=== PATIENT | female | born 1945 | race Caucasian/White ===

== ENCOUNTER → 2020-11-26 07:52 | Outpatient (CLI) | payer MEDICARE, SELFPAY ==
--- NOTE | ~2020-11-26 | US_ITS ---
US abdomen complete EXAMINATION: US Abdomen Complete INDICATION: Right upper quadrant abdominal pain PROCEDURE: Realtime High Resolution abdomen ultrasound. COMPARISON: No prior studies for comparison FINDINGS: Gallbladder contains multiple stones. No significant gallbladder wall thickening or pericho lecystic fluid. Common bile duct measures 4 mm. Liver echotexture is increased, consistent with fatty infiltration.. Pancreas within normal limits. Pancreatic tail is obscured by bowel gas. Spleen is unremarkeable. There is a 2.7 [address] renal [address]. Otherwise renal echotexture is unremarkable. Right kidney measures 11.3 cm. Left kidney measures 10.7 cm. Visualized aspects of the aorta and IVC are within normal limits. Portal vein is patent. No sonograph ic Coreas's sign indicated by the technologist. No discrete mass identified in the area of palpable c oncern in the upper quadrants. IMPRESSION: 1: Cholelithiasis. 2: Hepatic steatosis. 3: Right renal cyst measuring 8.7 cm. Reviewed, dictated and finalized at location A.
== END ==
PROVIDERS: PCP Family Medicine; Visit Provider Family Medicine
DX: R10.11 Right upper quadrant pain (principal); K80.20 Calculus of gallbladder without cholecystitis without obstruction; K76.0 Fatty (change of) liver, not elsewhere classified; N28.1 Cyst of kidney, acquired
CPT/HCPCS: 76700

== ENCOUNTER 2024-12-21 09:06 | Outpatient (CLI) | payer MEDICARE, SELFPAY ==
--- OUTSIDE RECORDS SUMMARY | 2024-12-21 09:21 | XMS_ITS | Referral Summary ---
Author Organization [facility] at the Medical Office Building Address [address] [place] [phone] Care Team Providers Care Proc Tech Name Role Phone Suleman Pinto DO Primary Care Provider + Encounters Date Type Department Care Team Description 12/01/2024 Letter (Out) [facility] [address] [place] [phone] 11/30/2024 Telephone [facility] [address] [place] [address] [phone] Suleman Pinto, Medical Question/Miscellaneous 11/24/2024 Orders Only [facility] [address] [place] [phone] Suleman Pinto DO 11/24/2024 Telephone [facility] [address] [place] [phone] Suleman Pinto DO Recommendation Request 11/17/2024 Telephone [facility] [address] [place] [phone] Suleman Pinto DO Medical Question/Miscellaneous 11/05/2024 2:45 PM CDT Office Visit [facility] at [place] [address] [facility] [address] [place] [phone] Suleman Pinto DO Functional diarrhea (Primary Dx); Stage 3a chronic kidney disease (HCC); Hypertensive kidney disease with CKD (chronic kidney disease), stage 1-4 or unspecified chronic kidney disease; Essential hypertension; Class 1 obesity without serious comorbidity with body mass index (BMI) of 30.0 to 30.9 in adult, unspecified obesity type 10/21/2024 Orders Only [facility] [address] [place] [phone] Slime Gage, CHLOE 10/16/2024 Results Follow-Up [facility] [address] [place] [phone] Slime Gage, SUPERVISOR SIGN [employer] Stool culture Stool Rectum, Cryptosporidium and Giardia antigen assay Stool, C. difficile testing Stool 10/13/2024 1:07 PM CDT - 10/13/2024 11:59 PM CDT Hospital Encounter [facility] Medical Office Building [address] [place] [phone] Diarrhea, unspecified type Discharge Disposition: Discharge to home or self care 10/12/2024 10:00 AM CDT Office Visit [facility] [address] [place] [phone] Slime Gage, SUPERVISOR SIGN SHOP Diarrhea, unspecified type (Primary Dx); Hyperactivity of bladder; Essential hypertension 10/08/2024 Telephone [facility] [address] [place] [phone] Suleman Pinto DO Appointment Request 10/08/2024 [facility] Outreach [facility] Accountable Care Organization [address] [place] [phone] Mely Quevedo MA 10/07/2024 7:29 PM CDT - 10/07/2024 8:25 PM CDT Emergency [facility] Emergency Department [facility] [place] [address] Gareth Leary MD Diarrhea, unspecified type (Primary Dx); Elevated blood pressure reading; Diverticulosis Discharge Disposition: Discharge to home or self care 10/07/2024 Nurse Triage [facility] Primary [facility] [address] [place] [address] [address] [place] [phone] Suleman Pinto DO 10/06/2024 Telephone [facility] Care [address] [place] [address] [address] [place] [phone] Suleman Pinto DO Appointment Request 09/23/2024 12:00 PM PIPE FITTER Office Visit [facility] Pulmonary [address] [place] [phone] Dionisio Sow MD Chronic cough (Primary Dx); Atopy; Chronic diastolic congestive heart failure (HCC); Primary hypertension from Last 3 Months Allergies Active Allergy Reactions Criticality Noted Date Comments Codeine Hallucinations Medium 11/20/2017 Iodinated Contrast Media Iodine Hives Medium 12/30/2015 Oxybutynin Chest tightness Medium 12/30/2015 Medications mirabegron ER (MYRBETRIQ) 50 mg tablet extended release 24 hr Take 1 tablet (50 mg total) by mouth daily 30 tablet 11 05/02/20 23 Active fluticasone propionate (FLONASE) 50 mcg/actuation nasal spray Administer 2 sprays into each nostril daily 16 g 11 06/25/20 23 027 Active metoprolol XL (TOPROL-XL) 25 mg extended release tablet Take 1 tablet (25 mg total) by mouth 2 (two) times a day 180 tablet 3 01/14/20 24 025 Active furosemide (LASIX) 40 mg tabletIndicatio ns:Stage 3a chronic kidney disease (HCC),Bilateral lower extremity edema Take 1 tablet (40 mg total) by mouth daily 30 tablet 08/28/19 25 026 Active amLODIPine (NORVASC) 5 mg tabletIndicatio ns:Essential hypertension Take 1 tablet (5 mg total) by mouth daily 30 tablet 08/28/19 25 026 Active cetirizine (ZyrTEC) 10 mg tablet Take 1 tablet (10 mg total) by mouth daily 30 tablet 11 09/24/19 25 028 Active dicyclomine (BENTYL) 20 mg tabletIndicatio ns:Abdominal Pain with Cramps Take 1 tablet (20 mg total) by mouth every 6 (six) hours as needed (For a bd pain) 20 tablet 10/08/19 25 Active Lactobacillus acidophilus capsule Take 1 capsule by mouth 2 (two) times a day 28 capsule 10/08/19 25 Active atorvastatin (LIPITOR) 40 mg tablet Take 1 tablet by mouth once daily 90 tablet 10/11/19 25 Active escitalopram (LEXAPRO) 10 mg tabletIndicatio ns:Adjustment disorder with anxious mood Take 1 tablet by mouth once daily 90 tablet 10/27/19 25 Active potassium chloride ER 10 mEq CR tablet Take 1 tablet by mouth once daily 90 tablet 1 11/24/19 25 Active diphenoxylate-a tropine (LOMOTIL) 2.5-0.025 mg per tabletIndicatio ns:diarrhea Take 1 tablet by mouth 4 (four) times a day as needed for diarrhea 30 tablet 2 11/25/19 25 Active potassium chloride ER 10 mEq CR tablet Take 1 tablet by mouth once daily 90 tablet 09/10/19 25 025 Discontinued diphenoxylate-a tropine (LOMOTIL) 2.5-0.025 mg per tabletIndicatio ns:diarrhea Take 1 tablet by mouth 4 (four) times a day as needed for diarrhea 30 tablet 2 10/22/19 25 025 Discontinued(R eorder) Active Problems Problem Noted Date Diagnosed Date Diarrhea 10/12/2024 Assessment & Plan (10/12/2024 12:09 PM CDT): Intermittent over the past 3 weeks. Patient to continue on daily probiotic. Patient instructed to follow the BRAT diet for the next week. Stool culture and C. Diff testing ordered. Patient to be contacted once culture results are obtained. Patient to call office if diarrhea worsens. Pleural effusion on right 04/17/2024 Chronic cough 04/23/2023 Acute cholecystitis 04/03/2023 Encounter for screening for malignant neoplasm o f colon 12/07/2022 Sensorineural hearing loss, asymmetrical 022 Vertigo 10/10/2021 Overview (10/10/2021): acute on chronic,unstable,see orders RTC PRN Stage 3a chronic kidney disease 12/22/2020 BMI 34.0-34.9,adult 10/10/2020 Adjustment disorder 07/26/2020 Adjustment reaction 07/26/2020 Aortic valve sclerosis 10/16/2018 Overview (07/31/2021): Echo 2017 - No Stenosis (Dr Cain) Overview: Echo 2016 - No Stenosis (Dr Cain) Hyperlipidemia 11/08/2017 Obesity (BMI 30-39.9) 11/08/2017 Other allergic rhinitis 11/08/2017 Paresthesia of left arm 02/27/2017 Dysfunction of eustachian tube 10/17/2016 Tear of medial meniscus of left knee 04/02/2016 Internal derangement of knee 03/07/2016 Dermatitis 12/16/2015 Bilateral lower extremity edema 10/17/2015 Hearing loss 11/19/2014 Anemia associated with stage 2 chronic renal maxime lure 10/20/2014 Hypertensive kidney disease with CKD (chronic kidney disease), stage 1-4 or unspecified chronic kidney disease 10/20/2014 Overview (07/31/2021): Description: 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 Patient following with urology. Essential hypertension 10/08/2012 Assessment & Plan (10/12/2024 11:50 AM CDT): Chronic, controlled with metoprolol 25 mg BID, amlodipine 5 mg daily, and furosemide 40 mg daily. Patient to follow up with Dr. Pinto. Resolved Problems Problem Noted Date Diagnosed Date Resolved Date Urine frequency 08/05/2024 08/05/2024 Abdominal pain 04/02/2023 08/28/2024 Assessment & Plan (04/02/2023 2:30 PM CDT): - severe abdominal pain in RUQ, ddx includes cholecystitis, SBO, diverticulitis, pancreatitis. Given severe condition and risk of severe complications from potential dx will send pt to ER for stat CT, labs - discussed with pt and gave report to ER. Abdominal swelling 10/10/2020 Hypertensive urgency 09/22/2019 021 Anserine bursitis 02/23/2016 08/28/2024 Overview (07/31/2021): Transitioned From: Knee pain Transitioned From: Knee pain Rhus dermatitis 12/16/2015 08/28/2024 Clavicular asymmetry 10/17/2015 021 Colon abnormality 03/09/2015 11/23/2020 Urinary incontinence 05/21/2013 021 Blood in urine 11/26/2012 08/28/2024 Backache 10/17/2012 08/28/2024 Chest pain 10/08/2012 08/28/2024 Hypertension 10/08/2012 08/28/2024 Immunizations Immunization Administration Dates Next Due Influenza, Quadrivalent, Hig h Dose, Preservative Free, Intrr 05/29/2023,05/03/2022,04/11/2021,04/16 Influenza, Trivalent, Adjuva nted, Intramuscular 04/28/2019 Influenza, Trivalent, High D ose, Split, Preservative Free, Intramuscular 05/20/2024,04/29/2017,04/05/2016,04/13 Influenza, Trivalent, IM (MDV) 04/30/2016,2011 Influenza, Unspecified 04/11/2021,2019,04/21/2019,04/21,04/14/2015,04/01/2014,04/07/2013 ,06/21/2012 Moderna SARS-CoV-2 Monovalen t Vaccination (12+ YRS) 09/20/2020,08/23/2020 Pneumococcal Conjugate PCV 13 04/13/2015 Pneumococcal Conjugate Pcv20 01/01/2023 Pneumococcal Polysaccharide PPV23 04/16/2016 RSV Vaccine, Pref, Recombina nt, Subunit, Adjuvanted, PF, IM (Arexvy) 05/29/2023 Tdap 11/24/2019 ZOSTER Recombinant 10/12/2024(Deferred: Patient Refused) Social History Tobacco Use Types Packs/Day Years Used Date Smoking Tobacco: Never Smokeless Tobacco: Never Tobacco Cessation:Counseling Given: Not Answered Alcohol Use Standard Drinks/Week Comments Not Currently 0 (1 standard drink = 0.6 oz pur e alcohol) Social Connection and Isolat ion Panel [NHANES] Answer Date Recorded In a typical week, how many times do you talk on the phone with family, friends, or neighbors? More than three times a week 04/03/2023 How often do you get togethe r with friends or relatives? More than three times a week 04/03/2023 How often do you attend [facility] or jew services? 1 to 4 times per year 04/03/2023 Do you belong to any clubs o r organizations such as confucianist groups, unions, fraternal or athletic groups, or school groups? No 04/03/2023 How often do you attend meet ings of the clubs or organizations you belong to? Never 04/03/2023 Are you , , di vorced, , never , or living with a partner? 04/03/2023 AUDIT-C Answer Date Recorded Q1: How often do you have a drink containing alc ohol? Never 08/05/2024 Average Number of Drinks Not on file 025 Frequency of Binge Drinking Not on file 07/22 Overall Financial Resource Strain (CARDIA) Answe r Date Recorded How hard is it for you to pa y for the very basics like food, housing, medical care, and heating? Not hard at all 04/03/2023 PHQ-2 Answer Date Recorded PHQ-2 Total Score (If total score is 3 or more points, staff should administer the PHQ-9) 0 10/12/2024 Hunger Vital Sign Answer Date Recorded Within the past 12 months, y ou worried that your food would run out before you got the money to buy more. Never true 04/03/20 23 Within the past 12 months, t he food you bought just didn't last and you didn't have money to get more. Never true 04/03/2023 PRAPARE - Transportation Answer Date Re corded In the past 12 months, has l ack of transportation kept you from medical appointments or from getting medications? No 03/22 In the past 12 months, has l ack of transportation kept you from meetings, work, or from getting things needed for daily living? No 04/03/2023 Housing Stability Vital Sign Answer Navjot e Recorded In the last 12 months, was t here a time when you were not able to pay the mortgage or rent on time? No 04/03/2023 In the last 12 months, how many places have you lived? 1 04/03/2023 In the last 12 months, was t here a time when you did not have a steady place to sleep or slept in a residential (including now)? No 04/03/2023 Personal Safety Answer Date Recorded Have you ever been in or are you currently in a harmful physical or emotional relationship or is someone making you feel afraid or unsafe? Denies 10/07/2024 Comments No Sex and Gender Information Value Date Recorded Sex Assigned at Not on file Legal Sex Female 9:55 AM PIPE FITTER Gender Identity Not on file Sexual Orientation Not on file Last Filed Vital Signs Vital Sign Reading Time Taken Comments Blood Pressure 136/78 11/05/2024 2:18 PM CDT Pulse 67 11/05/2024 2:18 PM CDT Temperature 36.1 C (96.9 F) 11/05/2024 2:18 PM CDT Respiratory Rate 16 11/05/2024 2:18 PM CDT Oxygen Saturation 93% 11/05/2024 2:18 PM CDT Inhaled Oxygen Concentration - - Weight 91.6 kg (202 lb) 11/05/2024 2:18 PM CDT Height 165.1 cm (5' 5) 11/05/2024 2:18 PM CDT Body Mass Index 33.61 11/05/2024 2:18 PM CDT Plan of Treatment Not on file Procedures Procedure Name Priority Date/Time Associated Diagnosis Comments C. DIFFICILE TESTING Routine 10/13/2024 12:10 PM CDT Diarrhea, unspecified type CRYPTOSPORIDIUM AND GIARDIA ANTIGEN ASSAY Routine 10/13/2024 12:10 PM CDT Diarrhea, unspecified type STOOL CULTURE Routine 10/13/2024 12:10 PM CDT Diarrhea, unspecified type CT ABDOMEN PELVIS WO CONTRAST ED 10/07/2024 6:45 PM CDT EGFR STAT 10/07/2024 6:17 PM CDT URINALYSIS, MICROSCOPIC ONLY STAT 10/07/2024 6:17 PM CDT DIFFERENTIAL AUTO STAT 10/07/2024 6:1 7 PM CDT LACTATE STAT 10/07/2024 6:17 PM CDT LIPASE STAT 10/07/2024 6:17 PM CDT COMPREHENSIVE METABOLIC PANEL STAT 10/07/2024 6:17 PM CDT CBC WITH AUTO DIFFERENTIAL STAT 10/07/2024 6:17 PM CDT URINALYSIS AND REFLEX TO MICROSCOPIC AND CULTURE STAT 10/07/2024 6:17 PM CDT DEXA AXIAL SKELETON BONE DENSITY 1 OR MORE SITES Schedule Routine, Read Routine (OP Routine) 01/08/2023 7:53 AM CDT Medicare annual wellness visit, subsequent Age-related osteoporosis without current pathological fracture from Last 3 Months or Most Recently Relevant to Health Maintenance Results * C. difficile testing Stool (10/13/2024 12:10 PM CDT) C. diff result Negative, DNA Negative , DNA Comment:Testing performed by : [facility], [address] [place] [address], [place]., [address] C. diff interp Negative for toxigenic Clostridioides (Clostridium) difficile. Analysis performed by detection of gene(s) encoding C. difficile toxin(s). The nucleic acid detection assay used is cleared by the [place] Food and Drug administration and its performance characteristics have been verified by the performing laboratory. LILIAM BROWN Comment:Testing performed by : [facility], [address] [place] [address]., [id number] Stool 10/13/2024 12:1 0 PM CDT 10/13/2024 2:14 PM CDT Slime Gage NP LAB MICROBIOLOGY - GENERAL ORD ERABLES Final Result Performing Organization Address City/[facility]/ZIP Co de Phone Number [address] [place] [address] * Cryptosporidium and Giardia antigen assay Stool (10/13/2024 12:10 PM CDT) Giardia Ag Negative Negative Comment:Testing performed by : [facility], [address] [place] [address]., [id number] Cryptosporidium Ag Negative Negative LILIAM Comment: Interpretive data: Testing performed by the [facility] using an immunoassay that detects Cryptosporidium and Giardia antigens in stool specimens. If comprehensive examination for ova and parasites is required, please request Ova and Parasite Examination. Testing performed by: [facility], [address] [place] [address]., [id number] Stool 10/13/2024 12:1 0 PM CDT 10/13/2024 6:18 PM CDT Narrative LILIAM - 10/14/2024 8:44 AM CDT Received in Formalin Slime Gage NP LAB MICROBIOLOGY - GENERAL ORD ERABLES Final Result [facility] [address] [facility] [place] [address] * Stool culture Stool Rectum (10/13/2024 12:10 PM CDT) Direct Specimen Exam Shiga Toxin Testing: Antigen detection assay for Shiga-toxin NEGATIVE for Shiga Toxin 1 and Shiga Toxin 2. Comment:Testing performed by : [facility], [address] [place]., [address] Report Final Report: No growth of enteric bacterial pathogens LILIAM BROWN Comment:Testing performed by : [facility], [address] [place]., [address] Stool (Rectum) 10/13/2024 12 :10 PM CDT 10/13/2024 6:17 PM CDT Narrative LILIAM - 10/17/2024 11:21 AM CDT Specimen was received in [facility]. Testing performed by [facility] ([phone]). Routine stool cultures include procedures to detect Salmonella, Shigella, Edwardsiella, Aeromonas, Pleisiomonas, Campylobacter, Yersinia, E. coli O157, and Shiga-like toxins. Vibrio is cultured only upon special request. If Vibrio is suspected, please call the laboratory at [phone]. Interpretive data was last updated November 26, 2016. us Slime Gage NP LAB MICROBIOLOGY - GENERAL ORD ERABLES Final Result LILIAM [address] [facility] Department [place] [address] * CT Abdomen Pelvis WO Contrast (10/07/2024 6:45 PM CDT) Anatomical Region Laterality Modality Body N/A Computed Tomogra phy 10/07/2024 7:17 PM CDT Narrative 10/07/2024 7:33 PM CDT EXAM DESCRIPTION: CT ABDOMEN PELVIS WO CONTRAST REASON FOR STUDY: LLQ abdominal pain diarrhea x 2 weeks. Pt states she has a sharp, lower abd pain immediately followed by diarrhea. Pt notes a mucus with her stool. Pt denies any blood in stool. TECHNIQUE: CT scan of the abdomen and pelvis performed without intravenous and without oral contrast using helical scanning technique. Reconstructed coronal and sagittal MPR images reviewed. All images stored on PACS. Automated exposure control was used as a dose optimization technique for this examination. COMPARISON: 08/28/2024 FINDINGS: The sensitivity for detection of visceral lesions is diminished without the use of intravenous contrast. LOWER CHEST: Mild scattered subsegmental atelectasis and mild bilateral pulmonary parenchymal scarring. No pleural effusion. Heart size is normal. Coronary artery atherosclerotic calcifications. Small hiatal hernia. LIVER: Normal size. No identified cystic or solid masses. Calcified hepatic granuloma. GALLBLADDER: Prior cholecystectomy. BILE DUCTS: No intrahepatic or extrahepatic ductal dilatation. SPLEEN: Normal size. No focal lesions. PANCREAS: No identified cystic or solid masses. No significant calcifications. No adjacent inflammation or peripancreatic fluid collections. Pancreatic duct not dilated. ADRENALS: Normal. KIDNEYS/URINARY TRACT: Right renal interpolar region cyst is unchanged measuring 7.2cm. Additional bilateral renal cysts and hypoattenuating lesions which are too small to characterize have not substantially changed compared to prior study.. No stones. No hydronephrosis or hydroureter. Urinary bladder is unremarkable. GI: Small hiatal hernia. The stomach is otherwise unremarkable. The small bowel and colon are normal in course and caliber with no evidence of obstruction or inflammation. No CT evidence of acute appendicitis. As on unchanged lipoma along the proximal transverse colon. Colonic diverticulosis with no CT evidence of acute diverticulitis. PERITONEUM: No ascites or free air. No lymphadenopathy. RETROPERITONEUM: No mass or adenopathy. REPRODUCTIVE: No significant abnormality. VASCULATURE: No abdominal aortic aneurysm. MUSCULOSKELETAL: No acute fractures or aggressive osseous lesions. IMPRESSION: 1. Colonic diverticulosis. No CT evidence acute diverticulitis. THIS IS AN ELECTRONICALLY VERIFIED FINAL REPORT 10/07/2024 7:33 PM - Electronically signed by Hai Monet M.D. AT: AT Report ID: [id number] [place] Location: [id number] Procedure Note Hai Monet MD - 10/07/2024 EXAM DESCRIPTION: CT ABDOMEN PELVIS WO CONTRAST REASON FOR STUDY: LLQ abdominal pain diarrhea x 2 weeks. Pt states she has a sharp, lower abd pain immediately followed by diarrhea. Pt notes a mucus with her stool. Pt denies any bloodin stool. TECHNIQUE: CT scan of the abdomen and pelvis performed without intravenousand without oral contrast using helical scanning technique. Reconstructed coronal and sagittal MPR images reviewed. All images stored on PACS.Automated exposure control was used as a dose optimization technique for this examination. COMPARISON: 08/28/2024 FINDINGS: The sensitivity for detection of visceral lesions is diminished without the use of intravenous contrast. LOWER CHEST: Mild scattered subsegmental atelectasis and mild bilateral pulmonary parenchymal scarring. No pleural effusion. Heart size isnormal. Coronary artery atherosclerotic calcifications. Small hiatal hernia. LIVER: Normal size. No identified cystic or solid masses. Calcified hepatic granuloma. GALLBLADDER: Prior cholecystectomy. BILE DUCTS: No intrahepatic or extrahepatic ductal dilatation. SPLEEN: Normal size. No focal lesions. PANCREAS: No identified cystic or solid masses. No significant calcifications. No adjacent inflammation or peripancreatic fluidcollections. Pancreatic duct not dilated. ADRENALS: Normal. KIDNEYS/URINARY TRACT: Right renal interpolar region cyst is unchanged measuring 7.2cm. Additional bilateral renal cysts and hypoattenuatinglesions which are too small to characterize have not substantially changedcompared to prior study.. No stones. No hydronephrosis or hydroureter. Urinarybladder is unremarkable. GI: Small hiatal hernia. The stomach is otherwise unremarkable. Thesmall bowel and colon are normal in course and caliber with no evidence of obstruction or inflammation. No CT evidence of acute appendicitis. As on unchanged lipoma along the proximal transverse colon. Colonicdiverticulosis with no CT evidence of acute diverticulitis. PERITONEUM: No ascites or free air. No lymphadenopathy. RETROPERITONEUM: No mass or adenopathy. REPRODUCTIVE: No significant abnormality. VASCULATURE: No abdominal aortic aneurysm. MUSCULOSKELETAL: No acute fractures or aggressive osseous lesions. IMPRESSION: 1. Colonic diverticulosis. No CT evidence acutediverticulitis. THIS IS AN ELECTRONICALLY VERIFIED FINAL REPORT 10/07/2024 7:33 PM - Electronically signed by Hai Monet M.D. AT: AT Report ID: [id number] [place] Location: [place] [address] Gareth Leary MD [facility] CT PROCEDURES Final Result * Lactate (10/07/2024 6:17 PM CDT) Pathologist [facility] Lactate 1.7 0.7 - 2.0 mmol/L Comment:Testing performed by : [address] [address] Blood 10/07/2024 6:17 PM CDT 10/07/2024 6:30 PM CDT Gareth Leary MD LAB BLOOD ORDERABLES Final Res ult Performing Organization Address [facility] Co de Phone Number LILIAM [address] [place] [address] * eGFR (10/07/2024 6:17 PM CDT) Pathologist [facility] eGFR 66 >=60 mL/min/1. 73 m2 Comment: Interpretive Data Reference Interval Normal >/= 90 mL/min/1.73m2 Mildly decreased* 60 - 89 mL/min/1.73m2 Mildly to moderately decreased 45 - 59 mL/min/1.73m2 Moderately to severely decreased 30 - 44 mL/min/1.73m2 Severely decreased 15 - 29 mL/min/1.73m2 Kidney Failure < 15 mL/min/1.73m2 *Relative to young adult level Estimated glomerular filtration rate is determined by the 2020 CKD-EPI equation recommended by the National Kid[employer] (A Unifying Approach to GFR Estimation: Recommendations of the NKF-ASK Task Force on Reassessing the Inclusion of Race in Diagnosing Kidney Disease, JASN 2020). The CKD-EPI equation should not be used for patients with unstable renal function and has not been validated in children and those over 70. Current interpretive data was last reviewed 2021. Testing performed by: [address] [address] Blood 10/07/2024 6:17 PM CDT 10/07/2024 6:30 PM CDT us Gareth Leary MD LAB BLOOD ORDERABLES Final Res ult Performing Organization Address City/[facility]/ZIP Co de Phone Number LILIAM [address] [place] [address] * Differential, auto (10/07/2024 6:17 PM CDT) Neutrophil abs 4.1 1.5 - 6.5 K/cumm Comment:Testing performed by : [address] [address] Imm gran abs 0.0 0.0 - 0.1 K/cumm [facility] Comment:Testing performed by : [address] [address] Lymphocyte abs 3.3 0.8 - 3.3 K/cumm [facility] Comment:Testing performed by : [address] [address] Monocyte abs 0.6 0.2 - 0.8 K/cumm [facility] Comment:Testing performed by : [address] [address] Eosinophil abs 0.3 0.0 - 0.5 K/cumm [facility] Comment:Testing performed by : [address] [address] Basophil abs 0.1 0.0 - 0.1 K/cumm [facility] Comment:Testing performed by : [address] [address] Neutrophil pct 48.8 % [facility] Comment: Interpretive Data Percent cell count reference ranges are not reported, since discordance with absolute values may lead to misinterpretation of CBC data. Current Interpretive Data was last revised on 2017. Testing performed by: [address] [address] Imm gran pct 0.2 % [facility] Comment: Interpretive Data Percent cell count reference ranges are not reported, since discordance with absolute values may lead to misinterpretation of CBC data. Current Interpretive Data was last revised on 2017. Testing performed by: [address] [address] Lymphocyte pct 39.8 % [facility] Comment: Interpretive Data Percent cell count reference ranges are not reported, since discordance with absolute values may lead to misinterpretation of CBC data. Current Interpretive Data was last revised on 2017. Testing performed by: [address] [address] Monocyte pct 6.9 % LILIAM Comment: Interpretive Data Percent cell count reference ranges are not reported, since discordance with absolute values may lead to misinterpretation of CBC data. Current Interpretive Data was last revised on 2017. Testing performed by: [address] [address] Eosinophil pct 3.7 % LILIAM Comment: Interpretive Data Percent cell count reference ranges are not reported, since discordance with absolute values may lead to misinterpretation of CBC data. Current Interpretive Data was last revised on 2017. Testing performed by: [address] [address] Basophil pct 0.6 % LILIAM Comment: Interpretive Data Percent cell count reference ranges are not reported, since discordance with absolute values may lead to misinterpretation of CBC data. Current Interpretive Data was last revised on 2017. Testing performed by: [address] [address] Blood 10/07/2024 6:17 PM CDT 10/07/2024 6:30 PM CDT us Gareth Leary MD LAB BLOOD ORDERABLES Final Res ult [place] [id number] [facility] Department [place] [address] * (ABNORMAL) Urinalysis reflex to microscopic and culture Urine (10/07/2024 6:17 PM CDT) Color, ur Yellow Yellow Comment:Testing performed by : [address] [address] Clarity, ur Clear Clear LILIAM Comment:Testing performed by : [address] [address] Specific gravity, ur 1.021 1.003 - 1.030 LILIAM Comment:Testing performed by : [address] [address] pH, urine 5.5 LLIIAM Comment: Interpretive Data U rine pH is affected by diet, medications, systemic acid-base disturbances, and renal tubular function. pH may affect urinary stone formation. For example, urine pH below 6.0 may help reduce the tendency for calcium phosphate stones and pH greater than 6.0 may reduce the tendency for uric acid stone formation. Source: [facility] [employer] Current Interpretive Data was last revised on 2017 Testing performed by: [facility], [address] [place] [address], [place]., [address] Protein, ur ql Negative Negative LILIAM Comment:Testing performed by : [address], [place]., [address] Glucose, ur ql Negative Negative LILIAM Comment:Testing performed by : [address], [place]., [address] Ketones, ur Negative Negative LILIAM Comment:Testing performed by : [address], [place]., [address] Bilirubin, ur Negative Negative LILIAM Comment:Testing performed by : [address], [place]., [address] Blood, ur Trace(A) Negative LILIAM Comment:Testing performed by : [address], [place]., [address] Urobilinogen, ur <2.0 <2.0 mg/dL LILIAM Comment:Testing performed by : [address], [place]., [address] Nitrite, ur Negative Negative LILIAM Comment:Testing performed by : [address], [place]., [address] Leukocyte esterase, ur Negative Negative LILIAM Comment:Testing performed by : [address], [place]., [address] UA reflex comment Reflex to microscopic UA will be performed. LILIAM Comment:Testing performed by : [address], [place]., [address] Urine 10/07/2024 6:17 PM CDT 10/07/2024 6:30 PM CDT us Gareth Leary MD LAB MICROBIOLOGY - GENERAL ORD ERABLES Final Result LILIAM [address] [facility] Department [place] [address] * (ABNORMAL) CBC with auto differential (10/07/2024 6:17 PM CDT) [facility] Signature WBC 8.3 3.8 - 9.9 K/cumm Comment:Testing performed by : [address] [address] Hgb 13.3 11.9 - 15.5 g/dL LILIAM Comment:Testing performed by : [address] [address] Hct 42.0 35.6 - 45.5 % LILIAM Comment:Testing performed by : [address] [address] Plt 262 150 - 400 K/cumm LILIAM Comment:Testing performed by : [address] [address] MPV 9.6 9.1 - 12.3 fL LILIAM Comment:Testing performed by : [address] [address] RBC 4.62 3.90 - 5.20 M/cumm LILIAM Comment:Testing performed by : [address] [address] MCV 90.9 81.3 - 96.4 fL LILIAM Comment:Testing performed by : [address] [address] MCH 28.8 27.1 - 33.3 pg LILIAM Comment:Testing performed by : [address] [address] MCHC 31.7(L) 32.3 - 35.7 g/dL LILIAM Comment:Testing performed by : [address] [address] RDW CV 13.7 11.1 - 14.9 % LILIAM Comment:Testing performed by : [address] [address] RDW SD 45.7 35.7 - 48.1 fL LILIAM Comment:Testing performed by : [address] [address] NRBC abs 0.00 0.00 - 0.01 K/cumm LILIAM Comment:Testing performed by : [address] [address] Blood Venous blood specimen / Unknown 10/07/2024 6:17 PM CDT 10/07/2024 6:30 PM CDT Gareth Leary MD LAB BLOOD ORDERABLES Final Res ult Performing Organization Address [facility] Co de Phone Number LILIAM [facility] [place] [address] * (ABNORMAL) Urinalysis, microscopic only (10/07/2024 6:17 PM CDT) WBC, ur 0-5 0 - 5 /HPF Comment:Testing performed by : [address] [address] RBC, ur 0-2 0 - 2 /HPF LILIAM Comment:Testing performed by : [address] [address] Epithelial cells, squamous, ur >50(A) 0 - 5 /HPF LILIAM Comment:Testing performed by : [address] [address] Mucous, ur Present(A) LILIAM Comment:Testing performed by : [address] [address] Culture Reflex Comment Reflex conditions for urine culture (WBC >10) not met. LILIAM Comment:Testing performed by : [address] [address] Urine 10/07/2024 6:17 PM CDT 10/07/2024 6:30 PM CDT Gareth Leary MD LAB URINE ORDERABLES Final Res ult Performing Organization Address [facility]/ZIP Co de Phone Number LILIAM [address] [facility] [place], [place] [id number] * Lipase (10/07/2024 6:17 PM CDT) Pathologist [facility] Lipase 24 10 - 99 Units/L Comment:Testing performed by : [address] [address] Blood Venous blood specimen / Unknown 10/07/2024 6:17 PM CDT 10/07/2024 6:30 PM CDT us Gareth Leary MD LAB BLOOD ORDERABLES Final Res ult [facility] [address] [facility] Department [place] [address] * Comprehensive metabolic panel (10/07/2024 6:17 PM CDT) Pathologist [facility] Sodium 141 135 - 145 mmol/L Comment:Testing performed by : [address] [address] Potassium, pl 4.3 3.3 - 4.9 mmol/L LILIAM Comment:Testing performed by : [address] [address] Chloride 105 97 - 110 mmol/L LILIAM Comment:Testing performed by : [address] [address] CO2 26 22 - 32 mmol/L LILIAM Comment:Testing performed by : [address] [address] Anion gap 10 2 - 15 mmol/L LILIAM Comment:Testing performed by : [address] [address] BUN 11 6 - 25 mg/dL LILIAM Comment:Testing performed by : [address] [address] Creatinine 0.88 0.60 - 1.10 mg/dL LILIAM Comment:Testing performed by : [address] [address] Glucose 110 70 - 199 mg/dL LILIAM Comment: Interpretive Data Fasting glucose >/= 126 mg/dl is diagnostic for diabetes. Fasting is defined as no caloric intake for at least 8 hours. Fasting glucose between 100 mg/dl to 125 mg/dl is diagnostic of prediabetes. In a patient with classic symptoms of hyperglycemia or hyperglycemic crisis, a random glucose >/= 200 mg/dl is diagnostic for diabetes. In the absence of unequivocal hyperglycemia, results should be confirmed by repeat testing. The classification and Diagnosis of Diabetes Diabetes Care 2021; 46: S19-S40. Current interpretive data was last revised 2022. Testing performed by: [address] [address] Calcium 9.1 8.5 - 10.3 mg/dL LILIAM Comment:Testing performed by : [address] [address] Bilirubin, total 0.4 0.1 - 1.2 mg/dL LILIAM Comment:Testing performed by : [address] [address] Protein, pl 7.2 6.5 - 8.5 g/dL LILIAM Comment:Testing performed by : [address] [address] Albumin 4.1 3.5 - 5.0 g/dL LILIAM Comment:Testing performed by : [address] [address] Alk phos 96 40 - 130 Units/L LILIAM Comment:Testing performed by : [address] [address] ALT 19 7 - 45 Units/L LILIAM Comment:Testing performed by : [address] [address] AST 20 10 - 45 Units/L LILIAM Comment:Testing performed by : [address] [address] Blood 10/07/2024 6:17 PM CDT 10/07/2024 6:30 PM CDT us Gareth Leary MD LAB BLOOD ORDERABLES Final Res ult LILIAM [address] [facility] Department of Laboratories [place], [place] [id number] * Dexa Axial Skeleton Bone Density 1 or 2 Site (01/08/2023 7:53 AM CDT) Anatomical Region Laterality Modality Body N/A Mammography 01/08/2023 8:13 PM CDT Narrative 01/08/2023 8:14 PM CDT EXAM DESCRIPTION: DEXA AXIAL SKELETON BONE DENSITY 1 OR MORE SITES REASON FOR STUDY: 77 y/o year old F with given history of: Age-related osteoporosis without current pathological fracture,Medicare annual wellness visit. Postmenopausal with end-stage renal disease . 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 LEFT HIP: Total BMD is 0.941 g/cm2 T-score is 0.0 This is a 3.1% decrease in comparison to prior exam which is statistically significant. Femoral neck BMD is 0.725 g/cm2 T-score is -1.1 FRAX: 10 year risk for a major osteoporotic fracture is 11 %, 10 year risk for a hip fracture is 2.1 % IMPRESSION: Low bone mass REFERENCE: Bone mineral density: Normal (T-score above or = -1.0) Low bone mass (T-score between -1.0 and -2.5) replaces the previously used term osteopenia Osteoporosis (T-score = or below -2.5) Medical evaluation for secondary causes of low bone mineral density may be appropriate. FRAX is a World Health Organization validated fracture risk assessment tool that calculates a person's 10 year probability of a major osteoporosis related fracture and hip fracture. According to the National Osteoporosis Foundation guidelines, postmenopausal women and men age 50 or older with low bone mass and a 10 year probability of a major osteoporosis related fracture = or greater than 20% or a 10 year probability of a hip fracture = or greater than 3% should be considered for treatment. For further information, including treatment recommendations, please refer to the 2019 ISCD Official Positions (http://www.iscd.org) and the NOF's Clinician's Guide to Prevention and Treatment of Osteoporosis (http://www.nof.org/professionals/clinical-guidelines) THIS IS AN ELECTRONICALLY VERIFIED FINAL REPORT 01/08/2023 8:14 PM - Electronically signed by Pia Sainz M.D. TW: TW Report ID: [id number] [place] Location: [id number] Procedure Note Pia Sainz MD - 01/08/2023 EXAM DESCRIPTION: DEXA AXIAL SKELETON BONE DENSITY 1 OR MORE SITES REASON FOR STUDY: 77 y/o year old F with given history of:Age-related osteoporosis without current pathological fracture,[facility]. Postmenopausal with end-stage renal disease . 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 LEFT HIP: Total BMD is 0.941 g/cm2 T-score is 0.0 This is a 3.1% decrease in comparison to prior exam which is statistically significant. Femoral neck BMD is 0.725 g/cm2 T-score is -1.1 FRAX: 10 year risk for a major osteoporotic fracture is 11 %, 10 year risk for ahip fracture is 2.1 % IMPRESSION: Low bone mass REFERENCE: Bone mineral density: Normal (T-score above or = -1.0) Low bone mass (T-score between -1.0 and -2.5) replaces thepreviously used term osteopenia Osteoporosis (T-score = or below -2.5) Medical evaluation for secondary causes of low bone mineral density may be appropriate. FRAX is a World Health Organization validated fracture risk assessmenttool that calculates a person's 10 year probability of a major osteoporosisrelated fracture and hip fracture. According to the National OsteoporosisFoundation guidelines, postmenopausal women and men age 50 or older with low bonemass and a 10 year probability of a major osteoporosis related fracture = or greater than 20% or a 10 year probability of a hip fracture = or greaterthan 3% should be considered for treatment. For further information, including treatment recommendations, please referto the 2019 ISCD Official Positions (http://www.iscd.org) and the NOF's Clinician's Guide to Prevention and Treatment of Osteoporosis (http://www.nof.org/professionals/clinical-guidelines) THIS IS AN ELECTRONICALLY VERIFIED FINAL REPORT 01/08/2023 8:14 PM - Electronically signed by Pia Sainz M.D. TW: TW Report ID: [id number] [place] Location: [id number] Suleman Pinto DO IMG DXA PROCEDURES Final Result from Last 3 Months or Most Recently Relevant to Health Maintenance Insurance UHC MEDICARE ADVANTAGE UHC MEDICARE ADVANTAGE [facility] MEDICARE ADVANTAGE Advance Directives For more information, please contact: [phone] Documents on File Type Date Recorded Patient Elevator Constructor Electric Expl anation ADVANCE DIRECTIVE 04/23/2023 8:33 AM Power of Movie Shot Camera Operator-Medical * Full Code (Latest Code Status on File) Date Activated Date Inactivated Comments 04/03/2023 3:03 AM 04/10/2023 8:19 PM Care Teams Proc Tech Relationship Specialty [place] [address] [place] [address] [id number] PCP - General Family Medicine 10/11/18
--- OUTSIDE RECORDS SUMMARY | 2024-12-21 09:21 | XMS_ITS | Encounter Summary ---
Author Organization [facility] Healthcare Address [address] [place] [address] Care Team Providers Care Cloth Mercerizer Operator Name Role Phone Suleman Pinto DO Primary Care Provider + Reason for Visit * Reason Onset Date Comments Medical Question/Miscellaneous 11/30/2024 Encounter Details Date Type Department Care Team ([facility] st Contact Info) Description 11/30/2024 Telephone [facility] Medical Group Primary Care [facility] [address] [phone] Suleman Pinto DO [address] [place] [id number] Medical Question/Miscellaneous Social History Tobacco Use Types Packs/Day Years Used Date Smoking Tobacco: Never Smokeless Tobacco: Never Alcohol Use Standard Drinks/Week Comments Not Currently [...] week 04/03/2023 How often do you attend chur ch or adventism services? 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 Please fax this referral again to: [phone] AC sending as high priority as Patient states she needs to see this Dr as soon as possible and she has been waiting for them to call her. Does message need to be routed? Yes-Action Needed documented in this encounter Plan of Treatment Not on file documented as of this encounter Visit Diagnoses Not on filedocumented in this encounter Care Teams Cloth Mercerizer Operator Relationship Specialty Start Date End Date Suleman Pinto DO [address] [place] [id number] PCP - General Family Medicine 10/11/18 documented as of this encounter
--- OUTSIDE RECORDS SUMMARY | 2024-12-21 09:21 | XMS_ITS | Clinical Summary ---
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 Gender Identity Not on file Sexual Orientation Not on file Plan of Treatment Health Maintenance Due Date Last Done Comments DEXA Bone Density 1945 Hepatitis C Virus (HCV) Screening 1945 Pneumococcal Immunization (50+ years) (1 of 1 - PCV) 1993 Zoster Immunization (1 of 2) 1993 Respiratory Syncytial Virus (RSV) Immunization (Adult) (1 - 1-dose 75+ series) 2018 Influenza Immunization (#1) 03/22/202403/23, 04/21/2019, 04/21/2018 SARS-COV-2 Immunization ( - season) 2024 DTaP/Tdap/Td Immunization Discontinued 11/24/2019 TdaP Immunization Completed 11/24/2019 Hepatitis B Immunization Aged Out No longer eligible based on patient's age to complete this topic Meningococcal Immunization (ACWY) Aged Out No longer eligible based on patient's age to complete this topic Rotavirus Immunization Aged Out No lo nger eligible based on patient's age to complete this topic
--- OUTSIDE RECORDS SUMMARY | 2024-12-21 09:21 | XMS_ITS | Clinical Summary ---
Author Organization [facility] at the Medical Office Building Address [address] [place] [phone] Care Team Providers Care Town Clerk Name Role Phone Millie Suleman Ricardo MCPHERSON Primary Care Provider + Allergies Active Allergy Reactions Criticality Noted Date [...] sprays into each nostril daily 16 g 06/25/20 23 027 Active metoprolol XL (TOPROL-XL) 25 mg extended release tablet Take 1 tablet (25 mg total) by mouth 2 (two) times a day 180 tablet 3 01/14/20 24 025 Active furosemide (LASIX) 40 mg tabletIndicatio ns:Stage 3a chronic kidney disease (HCC),Bilateral lower extremity edema Take 1 tablet (40 mg total) by mouth daily 30 tablet 11 08/28/19 25 026 Active amLODIPine (NORVASC) 5 mg tabletIndicatio ns:Essential hypertension Take 1 tablet (5 mg total) by mouth daily 30 tablet 11 08/28/19 25 026 Active cetirizine (ZyrTEC) 10 [...] 30 tablet 2 10/22/19 25 025 Discontinued(R linh) Active Problems Problem Noted Date Diagnosed Date [...] Chest pain 10/08/2012 08/28/2024 Hypertension 10/08/2012 08/28/2024 Encounters Date Type Department Care Team Description 12/01/2024 Letter (Out) [facility] Primary [facility] [address] [place] [phone] 11/30/2024 Telephone [facility] [address] [place] [phone] Suleman Pinto, Medical Question/Miscellaneous 11/24/2024 Orders Only [facility] [address] [place] [phone] Suleman Pinto DO 11/24/2024 Telephone [facility] Primary Care [address] [place] [phone] Suleman Pinto DO Recommendation Request 11/17/2024 Telephone [facility] Primary Care [address] [place] [phone] Suleman Pinto DO Medical Question/Miscellaneous 11/05/2024 2:45 PM CDT Office Visit [facility] Family Medicine at [facility] [address] [place] [phone] Suleman Pinto DO Functional diarrhea (Primary Dx); Stage 3a chronic kidney disease (HCC); Hypertensive kidney disease with CKD (chronic kidney disease), stage 1-4 or unspecified chronic kidney disease; Essential hypertension; Class 1 obesity without serious comorbidity with body mass index (BMI) of 30.0 to 30.9 in adult, unspecified obesity type 10/21/2024 Orders Only [facility] Primary [facility] [address] [place] [phone] Slime Gage, CHLOE 10/16/2024 Results Follow-Up [facility] [address] [place] [phone] Slime Gage, CORN CUTTER Stool culture Stool Rectum, Cryptosporidium and Giardia antigen assay Stool, C. difficile testing Stool 10/13/2024 1:07 PM CDT - 10/13/2024 11:59 PM CDT Hospital Encounter [facility] Medical Office Building [address] [place] [phone] Diarrhea, unspecified type Discharge Disposition: Discharge to home or self care 10/12/2024 10:00 AM CDT Office Visit [facility] [address] [place] [phone] Slime Gage, CORN CUTTER Diarrhea, unspecified type (Primary Dx); Hyperactivity of bladder; Essential hypertension 10/08/2024 Telephone [facility] Primary Care [address] [place] [phone] Suleman Pinto DO Appointment Request 10/08/2024 [facility]HANG ED Outreach [facility] Accountable Care Organization [address] [place] [phone] Mely Quevedo MA 10/07/2024 7:29 PM CDT - 10/07/2024 8:25 PM CDT Emergency [facility] Emergency Department [address] [place] [address] Gareth Leary MD Diarrhea, unspecified type (Primary Dx); Elevated blood pressure reading; Diverticulosis Discharge Disposition: Discharge to home or self care 10/07/2024 Nurse Triage [facility] Primary Care [address] [place] [phone] Suleman Pinto DO 10/06/2024 Telephone [facility] Care [address] [place] [phone] Suleman Pinto DO Appointment Request 09/23/2024 12:00 PM ASSOCIATE FINANCIAL ADVISOR Office Visit [facility] [place] [address] [place] [phone] Dionisio Sow MD Chronic cough (Primary Dx); Atopy; Chronic diastolic congestive heart failure (HCC); Primary hypertension from Last 3 Months Immunizations Immunization Administration Dates Next Due Influenza, [...] Tdap 11/24/2019 ZOSTER Recombinant 10/12/2024(Deferred: Patient Refused) Surgical History Surgery Date Site/Laterality Comments NV TOTAL ABDOMINAL HYSTERECT W/WO RMVL TUBE OVARY Hysterectomy - (Added by TW Conv)-- part of colon removed at same time COLONOSCOPY APPENDECTOMY CHOLECYSTECTOMY Medical History Medical History Date Comments Cough Chronic Cough - (Added by TW Conv) Personal history of other di seases of the circulatory system History of hypertension - (A dded by TW Conv) Endometriosis Endometriosis - (Added by TW Conv) Hypertension Allergic rhinitis Hyperlipidemia Depression Cataract Family History Medical History Relation Name Comments Cancer Father Alzheimer's disease Mother Relation Name Status Comments Father (Age 81) Mother (Age 92) Social History Tobacco Use Types Packs/Day Years [...] 04/03/2023 How often do you attend chur or sikh services? 1 to 4 times per year 04/03/2023 Do you belong to any clubs o r organizations such as jehovah's witness groups, unions, fraternal or athletic groups, or [...] place to sleep or slept in a long-term (including now)? No 04/03/2023 Personal Safety Answer Date Recorded Have you ever been in or are you currently in a harmful physical or emotional relationship or is someone making you feel afraid or unsafe? Denies 10/07/2024 Comments No Sex and Gender Information Value Date Recorded Sex Assigned at Not on file Legal Sex Female 9:55 AM ASSOCIATE FINANCIAL ADVISOR Gender Identity Not on file Sexual Orientation Not on file Obstetrics History Last Filed Vital Signs Vital Sign Reading [...] 11/05/2024 2:18 PM CDT Plan of Treatment Health Maintenance Due Date Last Done Comments Hepatitis B Screening 1963 Zoster Vaccine (1 of 2) 1993 Osteoporosis Screening-Bone Density Scan 01/08/2025 01/08/2023, 01/11/2020 Well Visit 65+ 01/13/2025 01/14/2024, 12/20, 11/28/2021, Additional history exists Fall Risk Assessment 08/28/2025 08/28/2024, 01/14/2024, 04/10/2023, Additional history exists Depression Screening 10/12/2025 10/12/2024, 08/28/2024, 01/14/2024, Additional history exists DTaP/Tdap/Td Vaccine (2 - Td or Tdap) 11/23/2029 11/24/2019 Covid-19 Vaccine Discontinued 05/13/2021, 08/2020, 08/23/2020 Pneumococcal vaccine 65+ Completed 023, 04/16/2016, 04/13/2015 Influenza Vaccine Completed 05/20/2024, , 05/03/2022, Additional history exists Procedures Procedure Name Priority Date/Time Associated Diagnosis [...] Negative , DNA Comment:Testing performed by : [address] [address] C. diff interp Negative for toxigenic Clostridioides (Clostridium) difficile. Analysis performed by detection of gene(s) encoding C. difficile toxin(s). The nucleic acid detection assay used is cleared by the [place] Food and Drug administration and its performance characteristics have been verified by the performing laboratory. LILIAM BROWN Comment:Testing performed by : [facility], [address] [place] [address]., [address] Stool 10/13/2024 12:1 0 PM CDT 10/13/2024 2:14 PM CDT Slime Gage NP LAB MICROBIOLOGY - GENERAL ORD ERABLES Final Result LILIAM [address] [place] [address] * Cryptosporidium and Giardia antigen assay Stool (10/13/2024 12:10 PM CDT) Giardia Ag Negative Negative Comment:Testing performed by : [facility], [address] [place] [address]., [address] Cryptosporidium Ag Negative Negative LILIAM BROWN Comment: Interpretive data: Testing performed by the [facility] using an immunoassay that detects Cryptosporidium and Giardia antigens in stool specimens. If comprehensive examination for ova and parasites is required, please request Ova and Parasite Examination. Testing performed by: [facility], [address] [place] [address], [address] Stool 10/13/2024 12:1 0 PM CDT 10/13/2024 6:18 PM CDT Narrative LILIAM - 10/14/2024 8:44 AM CDT Received in [place] Slime Gage NP LAB MICROBIOLOGY - GENERAL ORD ERABLES Final Result Performing Organization Address City/[facility] [[email or web address]] Co de Phone Number LILIAM [address] [place] [address] * Stool culture Stool Rectum (10/13/2024 12:10 PM CDT) Direct Specimen Exam Shiga Toxin Testing: Antigen detection assay for Shiga-toxin NEGATIVE for Shiga Toxin 1 and Shiga Toxin 2. Comment:Testing performed by : [facility], [address] [place] [address], [place]., [address] Report Final Report: No growth of enteric bacterial pathogens LILIAM BROWN Comment:Testing performed by : [facility], [address] [place] [address]., [address] Stool (Rectum) 10/13/2024 12 :10 PM CDT 10/13/2024 6:17 PM CDT Narrative LILIAM BROWN - 10/17/2024 11:21 AM CDT Specimen was received in [facility]. Testing performed by [facility]biology Laboratory ([phone]). Routine stool cultures include procedures to detect Salmonella, Shigella, Edwardsiella, Aeromonas, Pleisiomonas, Campylobacter, Yersinia, E. coli O157, and Shiga-like toxins. Vibrio is cultured only upon special request. If Vibrio is suspected, please call the laboratory at [phone]. Interpretive data was last updated November 26, 2016. us Slime Gage NP LAB MICROBIOLOGY - GENERAL ORD ERABLES Final Result LILIAM BROWN [address] [facility] Department [place] [address] * CT Abdomen Pelvis WO Contrast (10/07/2024 [...] Hai Monet M.D. AT: AT Report ID: [id number] Reading Location: [id number] Procedure Note Hai Monet MD - 10/07/2024 [...] Hai Monet M.D. AT: AT Report ID: [id number] Reading Location: [place] [address] Gareth Leary MD [facility] [place] PROCEDURES Final Result * Lactate (10/07/2024 6:17 PM CDT) Lactate 1.7 0.7 - 2.0 mmol/L Comment:Testing performed by : [facility], [address] [place] [address]., [address] Blood 10/07/2024 6:17 PM CDT 10/07/2024 6:30 PM CDT us Gareth Leary MD LAB BLOOD ORDERABLES Final Res ult LILIAM [facility] Department [place] [address] * eGFR (10/07/2024 6:17 PM CDT) eGFR 66 >=60 mL/min/1. 73 m2 Comment: [...] was last reviewed 2021. Testing performed by: [address] [address] Blood 10/07/2024 6:17 PM CDT 10/07/2024 6:30 PM CDT us Gareth Leary MD LAB BLOOD ORDERABLES Final Res ult LILIAM [address] [facility] Department [place] [address] * Differential, auto (10/07/2024 6:17 PM CDT) Neutrophil abs 4.1 1.5 - 6.5 K/cumm Comment:Testing performed by : [address] [address] Imm gran abs 0.0 0.0 - 0.1 K/cumm LILIAM Comment:Testing performed by : [address] [address] Lymphocyte abs 3.3 0.8 - 3.3 K/cumm [facility] Comment:Testing performed by : [address], [place]., [address] Monocyte abs 0.6 0.2 - 0.8 K/cumm [facility] Comment:Testing performed by : [address], [place]., [address] Eosinophil abs 0.3 0.0 - 0.5 K/cumm [facility] Comment:Testing performed by : [address], [place]., [address] Basophil abs 0.1 0.0 - 0.1 K/cumm [facility] Comment:Testing performed by : [address] [address] Neutrophil pct 48.8 % [facility] Comment: Interpretive Data Percent cell count reference ranges are not reported, since discordance with absolute values may lead to misinterpretation of CBC data. Current Interpretive Data was last revised on 2017. Testing performed by: [address] [address] Imm gran pct 0.2 % [facility] Comment: Interpretive Data Percent cell count reference ranges are not reported, since discordance with absolute values may lead to misinterpretation of CBC data. Current Interpretive Data was last revised on 2017. Testing performed by: [address] [address] Lymphocyte pct 39.8 % [facility] Comment: Interpretive Data Percent cell count reference ranges are not reported, since discordance with absolute values may lead to misinterpretation of CBC data. Current Interpretive Data was last revised on 2017. Testing performed by: [address] [address] Monocyte pct 6.9 % [facility] Comment: Interpretive Data Percent cell count reference ranges are not reported, since discordance with absolute values may lead to misinterpretation of CBC data. Current Interpretive Data was last revised on 2017. Testing performed by: [address] [address] Eosinophil pct 3.7 % [facility] Comment: Interpretive Data Percent cell count reference ranges are not reported, since discordance with absolute values may lead to misinterpretation of CBC data. Current Interpretive Data was last revised on 2017. Testing performed by: [address] [address] Basophil pct 0.6 % LILIAM Comment: Interpretive Data Percent cell count reference ranges are not reported, since discordance with absolute values may lead to misinterpretation of CBC data. Current Interpretive Data was last revised on 2017. Testing performed by: [address] [address] Blood 10/07/2024 6:17 PM CDT 10/07/2024 6:30 PM CDT us Gareth Leary MD LAB BLOOD ORDERABLES Final Res ult LILIAM [address] [facility] Department [place] [address] * (ABNORMAL) Urinalysis reflex to microscopic and culture Urine (10/07/2024 6:17 PM CDT) Color, ur Yellow Yellow Comment:Testing performed by : [address] [address] Clarity, ur Clear Clear LILIAM Comment:Testing performed by : [address] [address] Specific gravity, ur 1.021 1.003 - 1.030 LILIAM Comment:Testing performed by : [address] [address] pH, urine 5.5 LILIAM Comment: Interpretive Data U rine pH is affected by diet, medications, systemic acid-base disturbances, and renal tubular function. pH may affect urinary stone formation. For example, urine pH below 6.0 may help reduce the tendency for calcium phosphate stones and pH greater than 6.0 may reduce the tendency for uric acid stone formation. Source: [facility] [employer] Current Interpretive Data was last revised on 2017 Testing performed by: [address] [address] Protein, ur ql Negative Negative LILIAM BROWN Comment:Testing performed by : [address], [place]., [address] Glucose, ur ql Negative Negative LILIAM BROWN Comment:Testing performed by : [address], [place]., [address] Ketones, ur Negative Negative LILIAM BROWN Comment:Testing performed by : [address], [place]., [address] Bilirubin, ur Negative Negative LILIAM BROWN Comment:Testing performed by : [address], [place]., [address] Blood, ur Trace(A) Negative LILIAM BROWN Comment:Testing performed by : [address], [place]., [address] Urobilinogen, ur <2.0 <2.0 mg/dL LILIAM BROWN Comment:Testing performed by : [address], [place]., [address] Nitrite, ur Negative Negative LILIAM BROWN Comment:Testing performed by : [address], [place]., [address] Leukocyte esterase, ur Negative Negative LILIAM Comment:Testing performed by : [address], [place]., [address] UA reflex comment Reflex to microscopic UA will be performed. LILIAM Comment:Testing performed by : [address], [place]., [address] Urine 10/07/2024 6:17 PM CDT 10/07/2024 6:30 PM CDT us Gareth Leary MD LAB MICROBIOLOGY - GENERAL ORD ERABLES Final Result LILIAM [address] [facility] Department [place] [address] * (ABNORMAL) CBC with auto differential (10/07/2024 6:17 PM CDT) WBC 8.3 3.8 - 9.9 K/cumm Comment:Testing performed by : [address], [place]., [address] Hgb 13.3 11.9 - 15.5 g/dL LILIAM BROWN Comment:Testing performed by : [address] [address] Hct 42.0 35.6 - 45.5 % LILIAM Comment:Testing performed by : [address] [address] Plt 262 150 - 400 K/cumm LILIAM Comment:Testing performed by : [address] [address] MPV 9.6 9.1 - 12.3 fL LILIAM Comment:Testing performed by : [address] [address] RBC 4.62 3.90 - 5.20 M/cumm LILIAM Comment:Testing performed by : [address] [address] MCV 90.9 81.3 - 96.4 fL LILIAM Comment:Testing performed by : [address] [address] MCH 28.8 27.1 - 33.3 pg LILIAM Comment:Testing performed by : [address] [address] MCHC 31.7(L) 32.3 - 35.7 g/dL LILIAM Comment:Testing performed by : [address], [address] RDW CV 13.7 11.1 - 14.9 % LILIAM Comment:Testing performed by : [address], [address] RDW SD 45.7 35.7 - 48.1 fL LILIAM Comment:Testing performed by : [address] [address] NRBC abs 0.00 0.00 - 0.01 K/cumm LILIAM Comment:Testing performed by : [address] [address] Blood Venous blood specimen / Unknown 10/07/2024 6:17 PM CDT 10/07/2024 6:30 PM CDT us Gareth Leary MD LAB BLOOD ORDERABLES Final Res ult Performing Organization Address [facility] [[email or web address]] Co de Phone Number LILIAM [address] [place] [address] * (ABNORMAL) Urinalysis, microscopic only (10/07/2024 6:17 PM CDT) WBC, ur 0-5 0 - 5 /HPF Comment:Testing performed by : [address] [address] RBC, ur 0-2 0 - 2 /HPF LILIAM Comment:Testing performed by : [address] [address] Epithelial cells, squamous, ur >50(A) 0 - 5 /HPF LILIAM Comment:Testing performed by : [address] [address] Mucous, ur Present(A) LILIAM Comment:Testing performed by : [address] [address] Culture Reflex Comment Reflex conditions for urine culture (WBC >10) not met. LILIAM Comment:Testing performed by : [address] [address] Urine 10/07/2024 6:17 PM CDT 10/07/2024 6:30 PM CDT us Gareth Leary MD LAB URINE ORDERABLES Final Res ult Performing Organization Address [facility] [[email or web address]] Co de Phone Number LILIAM [address] [facility] [place] [address] * Lipase (10/07/2024 6:17 PM CDT) Lipase 24 10 - 99 Units/L Comment:Testing performed by : [address] [address] Blood Venous blood specimen / Unknown 10/07/2024 6:17 PM CDT 10/07/2024 6:30 PM CDT us Gareth Leary MD LAB BLOOD ORDERABLES Final Res ult LILIAM [address] [facility] Department [place] [address] * Comprehensive metabolic panel (10/07/2024 6:17 PM CDT) Sodium 141 135 - 145 mmol/L Comment:Testing performed by : [address] [address] Potassium, pl 4.3 3.3 - 4.9 mmol/L LILIAM Comment:Testing performed by : [address] [address] Chloride 105 97 - 110 mmol/L LILIAM Comment:Testing performed by : [address] [address] CO2 26 22 - 32 mmol/L LILIAM Comment:Testing performed by : [address] [address] Anion gap 10 2 - 15 mmol/L LILIAM Comment:Testing performed by : [address] [address] BUN 11 6 - 25 mg/dL LILIAM Comment:Testing performed by : [address] [address] Creatinine 0.88 0.60 - 1.10 mg/dL LILIAM Comment:Testing performed by : [address] [address] Glucose 110 70 - 199 mg/dL [facility] Comment: Interpretive Data Fasting glucose >/= 126 [...] classification and Diagnosis of Diabetes Diabetes Care 202; 46: S19-S40. Current interpretive data was last revised 2022. Testing performed by: [address] [address] Calcium 9.1 8.5 - 10.3 mg/dL LILIAM Comment:Testing performed by : [address] [address] Bilirubin, total 0.4 0.1 - 1.2 mg/dL LILIAM Comment:Testing performed by : [address] [address] Protein, pl 7.2 6.5 - 8.5 g/dL LILIAM Comment:Testing performed by : [address] [address] Albumin 4.1 3.5 - 5.0 g/dL LILIAM Comment:Testing performed by : [address] [address] Alk phos 96 40 - 130 Units/L LILIAM Comment:Testing performed by : [address] [address] ALT 19 7 - 45 Units/L LILIAM Comment:Testing performed by : [address] [address] AST 20 10 - 45 Units/L LILIAM Comment:Testing performed by : [address] [address] Blood 10/07/2024 6:17 PM CDT 10/07/2024 6:30 PM CDT us Gareth Leary MD LAB BLOOD ORDERABLES Final Res ult Performing Organization Address City/State/[facility] [[email or web address]] Co de Phone Number LILIAM [address] [facility] Department [place] [address] * Dexa Axial Skeleton Bone Density 1 [...] visit. Postmenopausal with end-stage renal disease . Timber Packer/Model: Hologic Horizon A (S/N [id number]) CLINICAL INFORMATION: Current height: 63 inches Maximum [...] Pia Sainz M.D. TW: TW Report ID: [id number] Reading Location: [id number] Procedure Note Pia Sainz MD - 01/08/2023 EXAM DESCRIPTION: DEXA AXIAL SKELETON BONE DENSITY 1 OR MORE SITES REASON FOR STUDY: 77 y/o year old F with given history of:Age-related osteoporosis without current pathological fracture,[facility]. Postmenopausal with end-stage renal disease . Timber Packer/Model: Hologic Horizon A (S/N [id number]) CLINICAL INFORMATION: Current height: 63 inches Maximum [...] Electronically signed by Pia Sainz M.D. TW: NETTE Report ID: [id number] Reading Location: [id number] Suleman Pinto DO IMG DXA PROCEDURES Final Result from Last 3 Months or Most Recently Relevant to Health Maintenance Insurance [facility] MEDICARE ADVANTAGE [facility] MEDICARE ADVANTAGE [facility] [place] [address] Advance Directives For more information, please contact: [phone] Documents on File Type Date Recorded Patient Inside Upholsterer Expl anation ADVANCE DIRECTIVE 04/23/2023 8:33 AM Power of Environmental Remediation Specialist-Medical * Full Code (Latest Code Status on File) Date Activated Date Inactivated Comments 04/03/2023 3:03 AM 04/10/2023 8:19 PM Care Teams Town Clerk Relationship Specialty Start Date End Date Suleman Pinto DO [address] [address] PCP - General Family Medicine 10/11/18
[2024-12-25 00:33] LABS: Pancreatic Elastase, Stool. >800 mcg/g (>200)
[2024-12-25 18:53] LABS: Calprotectin, Stool. 187 mcg/g
== END 2024-12-21 09:07 | disposition home or self-care (01) ==
LOC: ANHLAB 09:07
PROVIDERS: PCP Family Medicine; Visit Provider Nurse Practitioner Family
DX: R10.32 Left lower quadrant pain (principal); K52.9 Noninfective gastroenteritis and colitis, unspecified
CPT/HCPCS: 82653; 83993; 87045; 87427; 87449

== ENCOUNTER 2025-03-25 01:56 | Day surgery (SDC) | payer MEDICARE, SELFPAY ==
[2025-03-23 11:52] VITALS: BMI 32.7
--- OUTSIDE RECORDS SUMMARY | 2025-03-25 02:00 | XMS_ITS | Clinical Summary ---
Author Organization [facility] Address [address] [place] [address] Care Team Providers Care Catcher Plug Name Role Phone Unavailable Primary Care Provider Unavailabl e Social History Tobacco Use Types Packs/Day Years Used Date Smoking Tobacco: Never Assessed Comments Unknown Sex and Gender Information Value Date Recorded Sex Assigned at Not on file Legal Sex Female 7:55 AM ACETYLENE CUTTER Gender Identity Not on file Sexual Orientation Not on file Plan of Treatment Health Maintenance Due Date Last Done Comments Hepatitis C Virus (HCV) Screening 1945 Pneumococcal Immunization (5 0+ years) (1 of 1 - PCV) 1993 Zoster Immunization (1 of 2) 1993 Respiratory Syncytial Virus (RSV) Immunization (Adult) (1 - 1-dose 75+ series) 2018 SARS-COV-2 Immunization ( - season) 2024 Influenza Immunization (#1) 03/22/202503/23, 04/21/2019, 04/21/2018 DTaP/Tdap/Td Immunization Discontinued 11/24/2019 TdaP Immunization Completed 11/24/2019 Hepatitis B Immunization Aged Out No longer eligible based on patient's age to complete this topic Human Papillomavirus (HPV) Immunization Aged Out No longer eligible based on patient's age to complete this topic Meningococcal Immunization (ACWY) Aged Out No longer eligible based on patient's age to complete this topic Rotavirus Immunization Aged Out No lo nger eligible based on patient's age to complete this topic
--- OUTSIDE RECORDS SUMMARY | 2025-03-25 02:00 | XMS_ITS | Clinical Summary ---
Author Organization [facility] Address [address] [place] [id number] Care Team Providers Care Solution Spec Name Role Phone Millie Suleman Ricardo MCPHERSON Primary Care Provider + Allergies Active Allergy Reactions Criticality Noted Date Comments Codeine Hallucinations Medium 11/20/2017 Iodinated Contrast Media Iodine Hives Medium 12/30/2015 Oxybutynin Chest tightness Medium 12/30/2015 Medications mirabegron ER (MYRBETRIQ) 50 mg tablet extended release 24 hr Take 1 tablet (50 mg total) by mouth daily 30 tablet 11 3 Active fluticasone propionate (FLONASE) 50 mcg/actuation nasal spray Administer 2 sprays into each nostril daily 16 g 3 03/28/20 27 Active metoprolol XL (TOPROL-XL) 25 mg extended release tablet Take 1 tablet (25 mg total) by mouth 2 (two) times a day 180 tablet 3 4 Active furosemide (LASIX) 40 mg tabletIndications :Stage 3a chronic kidney disease (HCC),Bilateral lower extremity edema Take 1 tablet (40 mg total) by mouth daily 30 tablet 5 08/28/19 26 Active amLODIPine (NORVASC) 5 mg tabletIndications :Essential hypertension Take 1 tablet (5 mg total) by mouth daily 30 tablet 08/28/19 26 Active cetirizine (ZyrTEC) 10 mg tablet Take 1 tablet (10 mg total) by mouth daily 30 tablet 11 5 05/17/20 28 Active dicyclomine (BENTYL) 20 mg tabletIndications :Abdominal Pain with Cramps Take 1 tablet (20 mg total) by mouth every 6 (six) hours as needed (For a bd pain) 20 tablet 5 Active Lactobacillus acidophilus capsule Take 1 capsule by mouth 2 (two) times a day 28 capsule 5 Active potassium chloride ER 10 mEq CR tablet Take 1 tablet by mouth once daily 90 tablet 1 5 Active diphenoxylate-atr opine (LOMOTIL) 2.5-0.025 mg per tabletIndications :diarrhea Take 1 tablet by mouth 4 (four) times a day as needed for diarrhea 30 tablet 2 5 Active atorvastatin (LIPITOR) 40 mg tablet Take 1 tablet by mouth once daily 100 tablet 1 5 Active escitalopram (LEXAPRO) 10 mg tabletIndications :Adjustment disorder with anxious mood Take 1 tablet by mouth once daily 100 tablet 1 5 Active Active Problems Problem Noted Date Diagnosed Date [...] - No Stenosis (Dr Cain) Overview: Echo 2017 - No Stenosis (Dr Cain) Hyperlipidemia 11/08/2017 [...] Refused) Surgical History Surgery Date Site/Laterality Comments [place] TOTAL ABDOMINAL HYSTERECT W/WO RMVL TUBE OVARY [...] oz pur e alcohol) Social Connection and Isolation Panel Answer Date Recorded In a typical week, how many times do you talk on the phone with family, friends, or neighbors? More than three times a week 04/03/2023 How often do you get togethe r with friends or relatives? More than three times a week 04/03/2023 How often do you attend chur ch or nondenominational services? 1 to 4 times per year 04/03/2023 Do you belong to any clubs o r organizations such as pentecostalism groups, unions, fraternal or athletic groups, or [...] place to sleep or slept in a penitentiary (including now)? No 04/03/2023 Personal Safety Answer Date Recorded Have you ever been in or are you currently in a harmful physical or emotional relationship or is someone making you feel afraid or unsafe? 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 Gender Identity Not on file Sexual Orientation [...] 01/13/2025 01/14/2024, 12/20, 11/28/2021, Additional history exists Influenza Vaccine (#1) 2025 , 05/29/2023, 05/03/2022, Additional history exists Fall Risk Assessment 08/28/2025 08/28/2024, 01/14/2024, 04/10/2023, Additional history exists Depression Screening 10/12/2025 10/12/2024, 08/28/2024, 01/14/2024, Additional history exists DTaP/Tdap/Td Vaccine (2 - Td or Tdap) 11/23/2029 11/24/2019 Covid-19 Vaccine Discontinued 05/13/2021, 08/2020, 08/23/2020 Pneumococcal vaccine 65+ Completed 023, 04/16/2016, 04/13/2015 Procedures Procedure Name Priority Date/Time Associated Diagnosis Comments DEXA AXIAL SKELETON BONE DENSITY 1 OR MORE SITES Schedule Routine, Read Routine (OP Routine) 01/08/2023 7:53 AM CDT Medicare annual wellness visit, subsequent Age-related osteoporosis without current pathological fracture from Last 3 Months or Most Recently Relevant to Health Maintenance Results * Dexa Axial Skeleton Bone Density 1 [...] visit. Postmenopausal with end-stage renal disease . Engineering Production Liaison/Model: Knowthena A ([id number]/N [id number]) CLINICAL INFORMATION: Current height: 63 inches Maximum [...] Pia Sainz M.D. TW: TW Report ID: [id number] Reading Location: [id number] Procedure Note Pia Sainz MD - 01/08/2023 EXAM DESCRIPTION: DEXA AXIAL SKELETON BONE DENSITY 1 OR MORE SITES REASON FOR STUDY: 77 y/o year old F with given history of:Age-related osteoporosis without current pathological fracture,[facility]. Postmenopausal with end-stage renal disease . Engineering Production Liaison/Model: [employer] A ([id number]/N [id number]) CLINICAL INFORMATION: Current height: 63 inches Maximum [...] Pia Sainz M.D. TW: NETTE Report ID: [id number] Reading Location: [id number] Suleman Pinto DO IMG DXA PROCEDURES Final Result from Last 3 Months or Most Recently Relevant to Health Maintenance Insurance U[employer] MEDICARE ADVANTAGE [facility] MEDIC[facility] Address: [address] [place] [address] [address] [phone] [facility] MEDICARE ADVANTAGE [facility] MEDIC[facility] Address: [address] [place] [phone] [employer] MEDICARE ADVANTAGE Advance Directives For more information, please contact: [phone] Documents on File Type Date Recorded Patient Policy Writer Sales Expl anation ADVANCE DIRECTIVE 04/23/2023 8:33 AM Power of Oil Dispatcher-Medical * Full Code (Latest Code Status on File) Date Activated Date Inactivated Comments 04/03/2023 3:03 AM 04/10/2023 8:19 PM Care Teams Solution Spec Relationship Specialty Start Date End Date Suleman Pinto DO [address] [place] [id number] PCP - General Family Medicine 10/11/18
[2025-03-25 11:41] VITALS: BP 133/66; PULSE 68; RESP 18; TEMP 36.1; O2SAT 98
[2025-03-25] MEDS: LACTATED RINGERS 1,000 ML 150 ML IV CONT (11:54)
--- NOTE | 2025-03-25 12:40 | WPDANESEPPF ---
Anes - Initial Pre Proc Eval Procedure: Operation Date: 03/25/25 13:00 Proposed Procedures p Diagnostic Colonoscopy - Hema Boyd MD Date/Time: 03/25/25 12:40 Surgeon: Hema Boyd MD Pre Op Diagnosis: Functional diarrhea Patient Data Age: 79 Gender: F Height: 1.63 m Weight: 91.8 kg Last Vital Signs Temp 97 F L 03/25/25 11:41 Pulse 68 03/25/25 11:41 Resp 18 03/25/25 11:41 BP 133/66 03/25/25 11:41 Pulse Ox 98 03/25/25 11:41 O2 Del Method Room Air 03/25/25 11:41 Allergies Allergy/AdvReac Type Severity Reaction Status Date / Time iohexol (From contrast - CT, Allergy Mild Hives Verified 03/25/25 11:40 X-RAY) Home Medications ?Medication ?Instructions ?Recorded ?Confirmed ?Type Lactobacillus acidophilus 10 mg PO DAILY 12/17/24 03/23/25 History amlodipine 5 mg tablet 5 mg PO DAILY 12/17/24 03/23/25 History atorvastatin 40 mg tablet (Lipitor) 40 mg PO DAILY 12/17/24 03/23/25 History cetirizine 10 mg tablet (Allergy 10 mg PO DAILY PRN allergy symptoms 12/17/24 03/23/25 History Relief (cetirizine)) escitalopram oxalate 10 mg tablet 10 mg PO DAILY 12/17/24 03/23/25 History furosemide 40 mg tablet (Lasix) 40 mg PO QAM 12/17/24 03/23/25 History metoprolol succinate 25 mg 25 mg PO Q12H 12/17/24 03/25/25 History tablet,extended release 24 hr biotin 1 mg capsule 1 mg PO DAILY 03/23/25 03/23/25 History loperamide 2 mg capsule 2 mg PO EVERY OTHER DAY 03/23/25 03/23/25 History (Anti-Diarrheal (loperamide)) Patient hx anesthesia problems: none Family hx anesthesia problems: none Results Review: All pre-operative results and documents have been reviewed as part of the pre-operative evaluation. [facility] Past Medical History Medical History Kidney disease IBS (irritable bowel syndrome) Surgical History Surgical History Hx of cholecystectomy Family History Family History Mother Breast cancer Social History Social History Smoking status: Never smoker Second hand tobacco smoke exposure: No Alcohol intake: never Substance use: never Substance use type: does not use Living arrangements: alone Spiritual care concerns: No Anes - Eval Final PreProcedure Day of Procedure 03/25/25 12:40 Patient weight: obese Heart: regular rate and rhythm Lungs: clear to auscultation Airway: Mallampati scale class II Neurological: alert and oriented Last oral intake: >/= 8 hours ASA classification: III Emergent: no Anesthetic plan: proceed Anesthesia type and monitoring: general GIVS and standard monitoring Results Review: All pre-operative results and documents have been reviewed as part of the pre-operative evaluation. Informed Consent: The patient's anesthetic plan and its attendant risks and benefits were discussed with the patient/family/POA. Questions were solicited and answers provided to the satisfaction of the patient/family/POA.
--- NOTE | 2025-03-25 12:48 | WPDHPUPDATE1 ---
History and Physical Update Update Date/Time: 03/25/25 12:48 History and Physical has been reviewed, including an updated exam of the patient. There are NO changes in the patient's condition. Risks, benefits, and alternatives have been discussed and questions answered. Patient agrees to proceed with procedure.
--- NOTE | 2025-03-25 12:58 | S_PTH ---
PATIENT: Alice Vizcarra LOC: [facility]#:[id number] AGE/SX: 79/F ROOM: RE03/25/[address]: Hema Boyd MD : 1945 BED: DIS: 03/25/2025 SPEC #: [id number] RECD: 03/25/25 13:36 STATUS: MARY REEduin #: [id number] ALMAS: 03/25/25 12:[address]: Hema Boyd DEPT: [facility] Surgical RECD BY: Leesa Lyon MLT, ([facility]) ENTERED: 03/25/25 13:36 SP TYPE: Surgical OTHR DR: Suleman PintoMD Tissues: A - Colon Biopsy Procedures: Hematoxylin and Eosin Stain Gross and Microscopic Level 4
[2025-03-25 13:04] VITALS: BP 124/62; PULSE 67; RESP 25; O2SAT 98
[2025-03-25 13:14] VITALS: BP 127/85; PULSE 71; RESP 18; O2SAT 95
[2025-03-25 13:24] VITALS: BP 153/72; PULSE 71; RESP 22; O2SAT 97
== END 2025-03-25 13:48 | disposition home or self-care (01) ==
PROVIDERS: PCP Family Medicine; Referring Provider Nurse Practitioner Family; Visit Provider Internal Medicine Gastroenterology
PROC: 0DJD8ZZ Inspection of Lower Intestinal Tract, Via Natural or Artificial Opening Endoscopic (ICD-10-PCS; CPT 45378; principal; 2025-03-25 13:00)
DX: K59.1 Functional diarrhea (principal); K92.1 Melena; D17.5 Benign lipomatous neoplasm of intra-abdominal organs; K57.30 Diverticulosis of large intestine without perforation or abscess without bleeding; K64.8 Other hemorrhoids; I12.9 Hypertensive chronic kidney disease with stage 1 through stage 4 chronic kidney disease, or unspecified chronic kidney disease; N18.30 Chronic kidney disease, stage 3 unspecified; E78.5 Hyperlipidemia, unspecified; Z86.0100 Personal history of colon polyps, unspecified; E66.9 Obesity, unspecified; Z68.34 Body mass index [BMI] 34.0-34.9, adult
CPT/HCPCS: 45380; 88305; J2003; J2704; J7120